=== PATIENT | female | born 2000 | race Caucasian/White ===

== ENCOUNTER 2023-08-28 11:45 | Emergency (ER) | payer OTHER, SELFPAY ==
--- NOTE | ~2023-08-28 | US_ITS ---
EXAMINATION: US VENOUS ULTRASOUND WITH DOPPLER LOWER EXTREMITY, LEFT CLINICAL INFORMATION: Left lower extremity/calf pain. COMPARISON: None available. TECHNIQUE: Ultrasound of the deep veins is performed from the hip to the calf with compression sonography and color and pulse Doppler assessment. Spectral analysis with color-flow imaging is performed. FINDINGS: The common femoral vein is compressible and exhibits a normal phasic waveform; this suggests that the iliac veins are widely patent above. Within the proximal thigh, the visualized profunda femoris vein is normal. The examined greater saphenous vein and saphenofemoral junction are normal. Superficial femoral vein is patent in the proximal, mid and distal thigh. Popliteal vein is normal to the level of the trifurcation. On compression briggs scale and color Doppler images, the visualized posterior tibial and peroneal veins of the calf are normal. No evidence of Aiken's cyst. US/US venous duplex LE LT IMPRESSION: No evidence of deep vein thrombosis in the left lower extremity.
--- NOTE | 2023-08-28 12:11 | ED_ITS ---
HPI - Extremity Injury (Lower) General Chief Complaint: Extremity Problem Stated Complaint: Pain L leg Time Seen by Provider: 08/28/23 14:29 Source: patient, family, RN notes reviewed and old records reviewed Mode of arrival: ambulatory History of Present Illness ED Provider: Janna Chan PA-C HPI Narrative: 23-year-old female with no significant past medical history presenting to the ED complaining of left lower extremity pain since yesterday. States pain began in front of lower leg, now mainly in calf/posterior knee and posterior thigh. Denies known injury/trauma or fall. Reports parents have history of DVT, denies personal history of clots or clotting disorder. Describes pain as tightness. Denies SOB, travel, numbness/tingling, weakness Related Data Allergies Allergy/AdvReac Type Severity Reaction Status Date / Time amoxicillin Allergy Hemolytic Verified 08/28/23 12:13 Anemia Review of Systems Review of Systems: Constitutional: No Fever, No Chills ENT/Mouth: No Ear Pain, No Nasal Congestion, No Sinus Pain, No Hoarseness, No sore throat, No Rhinorrhea, No Swallowing Difficulty Cardiovascular: No Chest Pain, No SOB Respiratory: No Cough Gastrointestinal: No Nausea, No Vomiting, No Abdominal pain Musculoskeletal: + joint pain, No Myalgias, No Joint Swelling Skin: No Skin Lesions, No rash Neuro: No Weakness, No Numbness, No Paresthesias Yes all other systems are reviewed and are negative Constitutional: Constitutional: Reports as per HPI [facility] Past Medical History Attestation statement: The following information was validated with the patient. Source: old records reviewed Physical Exam Vital Signs: Vital Signs: Last Vital Signs Temp 97.9 F 08/28/23 12:12 Pulse 100 08/28/23 12:12 Resp 20 08/28/23 12:12 BP 146/63 H 08/28/23 12:12 Pulse Ox 100 08/28/23 12:12 O2 Del Method Room Air 08/28/23 12:12 BMI result Body Mass Index 31.9 Const: General: cooperative, healthy appearing and no acute distress Orientation/consciousness: patient oriented x3 Limitations: no limitations HEENT: Head: Yes normal to inspection and Yes atraumatic Ears: hearing grossly normal bilaterally General nose exam: Normal external nose present Face and sinus: Yes normal facial exam Eyes: General: appearance normal, both eyes and all related structures EOM: EOMs intact bilaterally Neck: Neck: Yes normal visual inspection and Yes no meningeal signs Resp: Effort & Inspection: normal respiratory effort and no respiratory distress Cardio: Rate: regular rate Peripheral pulses: Peripheral pulses 2+ throughout Skin: Rashes: no rashes Wounds: no wounds Neuro: General: patient oriented x3, tone normal and no meningeal signs Cranial nerves: Yes CN's II-XII intact bilaterally Gait exam (Neuro): Normal gait present Extrem: Other: Small bruise to anterior vetnura. + calf tenderness. No pitting edema, erythema/rash or crepitus. Compartments soft. Negative Homans sign. Course Course Course Narrative: This is a Rapid Medical Exam performed in triage by Janna Chan PA-C. Full HPI, ROS and PE to be performed by primary ED provider. 23 year-old F w/ no sig PMHx presenting to the ED c/o LLE pain x yesterday. Pain started in front of leg and now in calf. +Tightness when ambulating. Denies SOB, travel, numbness/tingling. Parents both with hx clots, patient denies personal hx clots or clotting d/o PE: NV intact +L calf ttp Plan: Venous duplex US ordered 1430--US venous duplex LE LT IMPRESSION: No evidence of deep vein thrombosis in the left lower extremity. Results discussed with patient including worrisome signs and symptoms and strict return precautions, and when to return to the emergency department. They verbalized understanding and feel safe for discharge at this time. Medical Decision Making Medical Decision Making MDM Narrative: 23-year-old female with no significant past medical history presenting to the ED complaining of left lower extremity pain since yesterday. On exam vital signs stable, NAD, nontoxic appearing physical exam as noted above. Concern for DVT vs strain vs contusion. Low suspicion for arterial compromise. Lower suspicion for PE Plan: Venous duplex ultrasound Please refer to course for remaining clinical decision making, interpretation of labs/imaging results, and discussions with consultants and/or family members. Differential Diagnosis Differential Diagnoses: The differential diagnosis associated with the presentation includes As above Radiology Impression Discussion of test interpretation with radiology: I have reviewed the radiologist's reading. External Record Review External record reviewed: Inpatient record, Office record, Outpatient record, Prior outpatient labs, Prior outpatient radiology, Primary care record and Outside ED record Tests considered The following testing was considered but not selected: As above Prescription Management I considered prescription management with: Pain Medication Discharge Plan Discharge Clinical Impression: Acute pain of left lower extremity Patient Disposition: Home, Self-Care Instructions: Leg Cramps (ED) Additional Instructions: Your ultrasound was negative for DVT Take Tylenol /Motrin as needed Follow-up with her doctor If symptoms persist or worsen you develop swelling, increasing or unremitting pain return to the ED Referrals: Physician,Jose J [Primary Care Provider] - 1 week
[2023-08-28 12:12] VITALS: BP 146/63; PULSE 100; RESP 20; TEMP 36.6; O2SAT 100; BMI 31.9
[2023-08-28 14:40] VITALS: BP 128/86; PULSE 98; RESP 20; TEMP 36.6; O2SAT 98
== END 2023-08-28 14:40 | disposition home or self-care (01) ==
PROVIDERS: Emergency Provider Emergency Medicine Emergency Medical Services
DX: M79.662 Pain in left lower leg (principal)
CPT/HCPCS: 93971; 99282; 99284